=== PATIENT | female | born 1980 | race Caucasian/White ===

== ENCOUNTER 2016-03-11 19:39 | Emergency (ER) | payer BC ==
[2016-03-11 19:58] VITALS: BP 129/74
--- NOTE | 2016-03-11 20:10 | UC ---
Lower Extremity/Ankle HPI - HPI Summary HPI Summary: Pt sustained abrasion to L esqueda about 10 days ago, was applying silvadene cream. About 2 days ago had sudden increase in redness and pain right around the wound. - History of Current Complaint Chief Complaint: UCSkin Stated Complaint: SOFT TISSUE COMPLAINT Time Seen by Provider: 03/11/16 19:53 Hx Obtained From: Patient Hx Last Menstrual Period: iud ?: No Onset/Duration: Gradual Onset, Lasting Days Severity Initially: Mild Severity Currently: Moderate Aggravating Factor(s): Nothing Alleviating Factor(s): Nothing Able to Bear Weight: Yes - Allergies/Home Medications Allergies/Adverse Reactions: Allergies Allergy/AdvReac Type Severity Reaction Status Date / Time No Known Allergies Allergy Verified 03/11/16 19:58 PMH/Surg Hx/FS Hx/Imm Hx Previously Healthy: Yes - Surgical History Surgical History: None - Family History Known Family History: Negative: Blood Disorder - Social History Occupation: Employed Full-time - vet Alcohol Use: Rare Substance Use Type: None Smoking Status (MU): Never Smoked Tobacco Review of Systems Constitutional: Negative Skin: Other - redness, abrasion Eyes: Negative ENT: Negative Respiratory: Negative Cardiovascular: Negative Gastrointestinal: Negative Genitourinary: Negative Motor: Negative Neurovascular: Negative Musculoskeletal: Negative Neurological: Negative Psychological: Negative All Other Systems Reviewed And Are Negative: Yes Physical Exam Triage Information Reviewed: Yes Appearance: Well-Appearing, No Pain Distress, Well-Nourished Vital Signs: Initial Vital Signs Temp 98.0 F 03/11/16 19:53 Pulse 67 03/11/16 19:53 Resp 16 03/11/16 19:53 BP 129/74 03/11/16 19:53 Pulse Ox 98 03/11/16 19:53 Vital Signs Reviewed: Yes Eye Exam: Normal Eyes: Positive: Conjunctiva Clear ENT Exam: Normal ENT: Positive: Normal ENT inspection, Hearing grossly normal, Pharynx normal, TMs normal Neck exam: Normal Neck: Positive: Supple, Nontender, No Lymphadenopathy Respiratory Exam: Normal Respiratory: Positive: Chest non-tender, Lungs clear, Normal breath sounds, No respiratory distress, No accessory muscle use Cardiovascular Exam: Normal Cardiovascular: Positive: RRR, No Murmur Musculoskeletal Exam: Normal Neurological Exam: Normal Psychological Exam: Normal Skin Exam: Other - LLE abrasion with surrounding erythema and edema. No streaking, mild serous exudate. Lower Extremity Course/Dx - Differential Dx/Diagnosis Provider Diagnoses: abrasion to LLE. cellulitis LLE Discharge - Discharge Plan Condition: Stable Disposition: HOME Prescriptions: Sulfamethox/Trimethoprim DS* [Bactrim DS 800/160 TAB*] 1 tab PO BID #[id number] tab Patient Education Materials: Cellulitis (ED) Additional Instructions: When possible, elevate the wound and apply warm packs. Return here if you have worsening, red streaks, or if you do not see improvement after 48 hours of treatment.
== END 2016-03-11 20:14 | disposition home or self-care (01) ==
LOC: UCEAST 19:39
DX: S80.812A Abrasion, left lower leg, initial encounter (principal); L03.116 Cellulitis of left lower limb; X58.XXXA Exposure to other specified factors, initial encounter; Y93.9 Activity, unspecified; Y92.9 Unspecified place or not applicable
CPT/HCPCS: 99202; G0463

== ENCOUNTER 2019-12-05 20:39 | Inpatient (IN) ==
[2019-12-05] MEDS ORDERED: Ondansetron ODT 4 mg TAB 4 MG TAB PO ONE (22:37)
[2019-12-05] MEDS ORDERED: Lactated Ringers 1000 ml BAG 1,000 ML IV ONE (22:52)
[2019-12-05] MEDS ORDERED: Lactated Ringers 1000 ml BAG 1,000 ML IV SCH (23:00)
[2019-12-06] MEDS ORDERED: Oxytocin in LR 20 UNITS/1,000 ML BAG IVPB ONE (02:08)
[2019-12-06] MEDS ORDERED: fentaNYL 100 mcg/2 ml 50 MCG/ML VIAL ONE (02:16)
[2019-12-06] MEDS ORDERED: ceFAZolin 2 GM PREMIX 2 GM/50 ML BAG ONE (02:29)
[2019-12-06] MEDS ORDERED: Dibucaine 1% OINT 28.35 GM TUBE PR PRN (02:47)
[2019-12-06] MEDS ORDERED: Glycerin ADULT 2.4 gm SUPP PR PRN (02:47)
[2019-12-06] MEDS ORDERED: Witch Hazel PAD JAR TOPICAL PRN (02:47)
[2019-12-06] MEDS ORDERED: Lactated Ringers 1000 ml BAG 1,000 ML IV SCH (03:00)
[2019-12-06] MEDS ORDERED: Oxytocin in LR 20 UNITS/1,000 ML BAG IVPB SCH (03:00)
[2019-12-06] MEDS ORDERED: Ammonia Inhalant 1 EA AMP ONE (04:59)
[2019-12-06] MEDS ORDERED: Lidocaine 1% VIAL 10 MG/ML VIAL ONE (05:51)
[2019-12-06] MEDS ORDERED: Oxytocin 10 UNITS/ML 1 ML VIAL ONE (05:51)
[2019-12-06 06:30] LABS: Urine Benzodiazepine Screen None Detected (None Detect); Urine Cannabinoids Screen None Detected (None Detect); Urine Opiates Screen None Detected (None Detect)
[2019-12-06 07:00] LABS: ABS Basophils 0.1 10^3/ul (0-0.2); ABS Lymphocytes 0.6 10^3/ul (1.0-4.8); ABS Neutrophils 19.3 10^3/ul (1.5-7.7); Hematocrit 30 % (35-47); Hemoglobin 10.5 g/dL (12.0-16.0); Lymphocyte % 3.1 %; Mean Corpuscular HGB Conc 36 g/dL (31-36); Mean Corpuscular Hemoglobin 32 pg (27-31); Mean Corpuscular Volume 91 fL (80-97); Mean Platelet Volume 9.7 fL (7.4-10.4); Platelet Count 138 10^3/uL (150-450); Red Blood Count 3.24 10^6 /uL (3.70-4.87); Red Cell Distribution Width 13 % (10-15)
[2019-12-07 07:37] LABS: ABS Basophils 0.1 10^3/ul (0-0.2); ABS Eosinophils 0.2 10^3/ul (0-0.6); ABS Lymphocytes 2.2 10^3/ul (1.0-4.8); ABS Monocytes 0.7 10^3/ul (0-0.8); ABS Neutrophils 8.8 10^3/ul (1.5-7.7); Eosinophil % 1.5 %; Hematocrit 26 % (35-47); Hemoglobin 8.9 g/dL (12.0-16.0); Lymphocyte % 18.5 %; Mean Corpuscular HGB Conc 34 g/dL (31-36); Mean Corpuscular Hemoglobin 32 pg (27-31); Mean Corpuscular Volume 93 fL (80-97); Mean Platelet Volume 9.7 fL (7.4-10.4); Platelet Count 140 10^3/uL (150-450); Red Cell Distribution Width 13 % (10-15)
[2019-12-08 08:03] VITALS: BP 104/66
== END 2019-12-08 10:42 | disposition home or self-care (01) | DRG 541 ==
LOC: MCHOBOUT 20:39 → MCHOB 21:11
PROVIDERS: ADMIT Midwife; ATTEND Midwife